=== PATIENT | male | born 1960 | race Caucasian/White ===

== ENCOUNTER → 2019-05-16 15:09 | Outpatient (CLI) | payer OTHER, SELFPAY ==
--- NOTE | ~2019-05-16 | XR_ITS ---
EXAMINATION: XR shoulder RT min 2V DATE: 05/16/2019 15:24 INDICATION: Right shoulder pain. TECHNIQUE: 4 views of right shoulder were obtained. COMPARISON: None. FINDINGS: Bone alignment is normal. No fracture. There is mild osteoarthritis of glenohumeral joint a nd moderate osteoarthritis of acromioclavicular joint. IMPRESSION: 1. Polyarticular osteoarthritis. Reviewed, dictated and finalized at location A. ERY CHIEF
== END ==
PROVIDERS: Visit Provider Family Medicine
DX: M19.011 Primary osteoarthritis, right shoulder (principal)
CPT/HCPCS: 73030

== ENCOUNTER 2019-12-30 01:46 | Outpatient (CLI) | payer OTHER, SELFPAY ==
[2019-12-30 18:23] LABS: SARS-CoV-2 RNA PCR Negative
== END 2019-12-30 01:47 | disposition home or self-care (01) ==
LOC: ANHCOVIDDT 01:46
PROVIDERS: PCP Family Medicine; Visit Provider Internal Medicine Gastroenterology
DX: Z01.812 Encounter for preprocedural laboratory examination (principal); Z20.828 Contact with and (suspected) exposure to other viral communicable diseases
CPT/HCPCS: 87635; C9803; U0003

== ENCOUNTER 2020-01-01 01:21 | Day surgery (SDC) | payer OTHER, SELFPAY ==
[2019-12-25 11:16] VITALS: BMI 26.2
[2020-01-01 07:19] VITALS: BP 114/82; PULSE 88; RESP 16; TEMP 36.2; O2SAT 98; BMI 25.7
[2020-01-01] MEDS: LACTATED RINGERS 1,000 ML 150 ML IV CONT (07:33)
--- NOTE | 2020-01-01 07:56 | WPDGICN ---
Assessment and Plan Assessment and plan (1) Encounter for screening colonoscopy: Code(s): Z12.11 - Encounter for screening for malignant neoplasm of colon Status: Acute Assessment and Plan: Patient appears to be at average risk for colon cancer. Last colonoscopy was 10 years ago in 2009. Plan is for screening colonoscopy at this time. Further recommendations will be given after endoscopy. GI Consult Note Consult date/time: 01/01/20 07:56 HPI: Bryan Coleman is a 59 year old male Seen in evaluation at the request of Dr Dania Solorzano. patient presents for screening colonoscopy. his current weight appetite bowel movements are normal. He denies abdominal pain. He states his bowel habits are normal. There has been no bleeding. Family history is noncontributory. No family history of colon or rectal disease is evident. Review of Systems Review of Systems: All systems reviewed & are unremarkable except as noted in HPI and below PMFSH Past Medical History Medical History Hepatitis C antibody test negative (~11/18/16) Normal colonoscopy (~10/01/09) Family History Family History Mother Diabetes mellitus Hypertension Family history of cardiovascular disease Family history of elevated blood lipids Father Hypertension Family history of elevated blood lipids Family history of cardiovascular disease Cerebrovascular accident Sibling Hypertension Social History Social History Smoking status: Never smoker Alcohol intake: current Meds Home Medications and Allergies Home Medications Medication Instructions Recorded Confirmed Type famotidine 20 mg tablet 20 mg PO DAILY PRN 05/22/19 01/01/20 History lisinopril 10 mg tablet 10 mg PO DAILY #90 tablet 12/11/19 01/01/20 Rx pravastatin 10 mg tablet 10 mg PO DAILY #90 tablet 12/11/19 01/01/20 Rx Allergies Allergy/AdvReac Type Severity Reaction Status Date / Time No Known Allergies Allergy Unknown Verified 01/01/20 07:16 Vital Signs Vital Signs - 24 hr 01/01/20 07:19 Temperature 97.2 F L Pulse Rate 88 Respiratory Rate 16 Blood Pressure 114/82 Pulse Oximetry 98 Exam Narrative: Exam Narrative: Physical exam reveals patient to be alert. Vital signs stable. HEENT exam unremarkable. Lungs are clear to auscultation and percussion. Heart is without murmur or extra sounds. Abdominal exam bowel sounds are present soft nontender with no hepatosplenomegaly. Digital external rectal exam normal.
--- NOTE | 2020-01-01 08:15 | WPDANESEPPF ---
Anes - Initial Pre Proc Eval Procedure: Operation Date: 01/01/20 08:30 Proposed Procedures p Screening Colonoscopy - Italo Bucio MD Date/Time: 01/01/20 08:15 Surgeon: Italo Bucio MD Pre Op Diagnosis: neoplasm screening Patient Data Age: 59 Gender: M Height: 6 ft 1 in Weight: 88.6 kg Last Vital Signs Temp 97.2 F L 01/01/20 07:19 Pulse 88 01/01/20 07:19 Resp 16 01/01/20 07:19 BP 114/82 01/01/20 07:19 Pulse Ox 98 01/01/20 07:19 Allergies Allergy/AdvReac Type Severity Reaction Status Date / Time No Known Allergies Allergy Unknown Verified 01/01/20 07:16 Home Medications Medication Instructions Recorded Confirmed Type famotidine 20 mg tablet 20 mg PO DAILY PRN 05/22/19 01/01/20 History lisinopril 10 mg tablet 10 mg PO DAILY #90 tablet 12/11/19 01/01/20 Rx pravastatin 10 mg tablet 10 mg PO DAILY #90 tablet 12/11/19 01/01/20 Rx Patient hx anesthesia problems: none Family hx anesthesia problems: none PMFSH Past Medical History Medical History (Updated 01/01/20 @ 07:59 by Ras Jean MD) Essential (primary) hypertension Gastro-esophageal reflux disease without esophagitis Hepatitis C antibody test negative (~11/18/16) Mixed hyperlipidemia Normal colonoscopy (~10/01/09) Family History Family History Mother Diabetes mellitus Hypertension Family history of cardiovascular disease Family history of elevated blood lipids Father Hypertension Family history of elevated blood lipids Family history of cardiovascular disease Cerebrovascular accident Sibling Hypertension Social History Social History Smoking status: Never smoker Alcohol intake: current Anes - Eval Final PreProcedure Day of Procedure 01/01/20 08:15 Patient weight: normal Heart: regular rate and rhythm Lungs: clear to auscultation Airway: Mallampati scale class II Neurological: alert and oriented Last oral intake: >/= 8 hours ASA classification: II Emergent: no Anesthetic plan: proceed Anesthesia type and monitoring: general GIVS and standard monitoring Informed Consent: The patient's anesthetic plan and its attendant risks and benefits were discussed with the patient/family/POA. Questions were solicited and answers provided to the satisfaction of the patient/family/POA.
[2020-01-01 08:56] VITALS: BP 122/70; PULSE 75; RESP 16; O2SAT 99
[2020-01-01 09:06] VITALS: BP 121/70; PULSE 80; RESP 21; O2SAT 97
[2020-01-01 09:16] VITALS: BP 116/82; PULSE 70; RESP 20; O2SAT 100
== END 2020-01-01 09:24 | disposition home or self-care (01) ==
PROVIDERS: PCP Family Medicine; Visit Provider Internal Medicine Gastroenterology
PROC: 0DJD8ZZ Inspection of Lower Intestinal Tract, Via Natural or Artificial Opening Endoscopic (ICD-10-PCS; CPT 45378; principal; 2020-01-01 08:30)
DX: Z12.11 Encounter for screening for malignant neoplasm of colon (principal); K64.8 Other hemorrhoids
CPT/HCPCS: 45378; J2704; J7120

== ENCOUNTER → 2022-01-03 15:08 | Outpatient (CLI) | payer OTHER, SELFPAY ==
--- NOTE | ~2022-01-03 | XR_ITS ---
XR foot RT min 3V DATE: 01/03/2022 15:19 INDICATION: Right great toe pain. No injury. TECHNIQUE: 4 views COMPARISON: None FINDINGS: There is moderately prominent osteoarthritic change at the first metatarsophalangeal joint. No fracture or dislocation, periosteal reaction or bone destruction. IMPRESSION: Moderate osteoarthritic change at first metatarsophalangeal joint Reviewed, dictated and finalized at location B.
== END ==
PROVIDERS: PCP Family Medicine; Visit Provider Family Medicine
DX: M19.071 Primary osteoarthritis, right ankle and foot (principal)
CPT/HCPCS: 73630

== ENCOUNTER 2022-04-07 08:20 | Outpatient (CLI) | payer OTHER, SELFPAY ==
--- NOTE | 2022-04-07 08:34 | ECG_ITS ---
Measurements Intervals [place] Rate: 61 P: 64 IN: 195 QRS: 32 QRSD: 95 T: 55 QT: 382 QTc: 388 Interpretive Statements SINUS RHYTHM NO PREVIOUS ECG AVAILABLE FOR COMPARISON Electronically Signed On 04-07-2022 10:23:18 [employer] by Danette Rankin M.D.
== END 2022-04-07 08:21 | disposition home or self-care (01) ==
LOC: ANHCARD 08:21
PROVIDERS: PCP Family Medicine; Visit Provider Orthopaedic Surgery Hand Surgery
DX: M79.642 Pain in left hand (principal)
CPT/HCPCS: 93005

== ENCOUNTER 2022-05-15 10:13 | Outpatient (NON) | payer OTHER, SELFPAY ==
[2022-05-15 17:46] LABS: IFOB Positive Control Positive; Immunochemical Fecal Occult Bl Negative (N)
== END 2022-05-15 10:14 | disposition home or self-care (01) ==
LOC: ANHGOSHLAB 10:15
PROVIDERS: PCP Family Medicine; Visit Provider Family Medicine
DX: D64.9 Anemia, unspecified (principal)
CPT/HCPCS: 82274

== ENCOUNTER 2024-07-25 10:42 | Outpatient (CLI) | payer MEDICARE, OTHER, SELFPAY ==
--- NOTE | ~2024-07-25 | XR_ITS ---
Left Shoulder Technique: AP and scapular Y views were obtained. Clinical History: Pain Findings: No fracture or dislocation is seen. Osseous alignment is anatomic. The glenohumeral and acr omioclavicular joint spaces are preserved. Soft tissues are unremarkable. Impression: Unremarkable left shoulder radiographs. Reviewed, dictated and finalized at [facility]. Impression: Unremarkable left shoulder radiographs.
== END 2024-07-25 10:43 | disposition home or self-care (01) ==
LOC: GOSHIMG 10:42
PROVIDERS: PCP Family Medicine; Visit Provider Family Medicine
DX: M25.512 Pain in left shoulder (principal)
CPT/HCPCS: 73030

== ENCOUNTER 2024-07-30 15:25 | Emergency (ER) | payer MEDICARE, OTHER, SELFPAY ==
[2024-07-30 15:35] VITALS: BP 191/108; PULSE 96; RESP 16; TEMP 36.4; O2SAT 99
--- NOTE | 2024-07-30 15:55 | ED_ITS ---
HPI - General Adult General Chief complaint: Unspecified <Yamel Roly ANTONIA Mcpherson BC - Last Filed: 07/30/24 16:21> Stated complaint: ELEVATED BLOOD PRESSURE <Yamel Dunham ANTONIA Mcpherson BC - Last Filed: 07/30/24 16:21> Time Seen by Provider: 07/30/24 15:45 <ANTONIA Figueroa BC - Last Filed: 07/30/24 16:21> Source: patient and RN notes reviewed <Yamel Roly ANTONIA Mcpherson BC - Last Filed: 07/30/24 16:21> Mode of arrival: ambulatory <ANTONIA Figueroa BC - Last Filed: 07/30/24 16:21> Limitations: no limitations <Yamel Roly ANTONIA Mcpherson BC - Last Filed: 07/30/24 16:21> History of Present Illness HPI narrative: Patient presents today complaining of 5 day history of headache, fatigue, dizziness, fogginess in his head, left shoulder pain radiating to the arm. He currently rates his headache 8/10 and has tried Tylenol without relief. He is complaining of elevated blood pressures for the past 5 days as well into the 170 systolic. He saw his PCP last week for left shoulder pain and they noted his elevated blood pressure. At that time his lisinopril was increased from 10 mg daily to 20 mg daily. Through the weekend he was in contact with his PCP who increased him to 20 mg b.i.d.. He has been keeping track of his blood pressure through the weekend and they have not decreased. He was instructed to follow-up for further evaluation of his blood pressure today. He denies chest pain, shortness of breath, numbness or tingling, weakness, vision changes. Patient states he has gained 15 lb in the last 2 months due to starting on testosterone treatment. <Yamel LLatonya ANTONIA Mcpherson BC - Last Filed: 07/30/24 16:21> Related Data Home medications: Home Medications ?Medication ?Instructions ?Recorded ?Confirmed ?Last Taken ?Type famotidine 20 mg tablet 20 mg PO DAILY PRN REFLUX 05/22/19 07/25/24 Unknown History testosterone 1 % (50 mg/5 gram) 1 packet transdermal DAILY 07/25/24 07/25/24 Unknown History transdermal gel packet (AndroGel) <ANTONIA Figueroa BC - Last Filed: 07/30/24 16:21> Allergies/adverse reactions: Allergies Allergy/AdvReac Type Severity Reaction Status Date / Time No Known Allergies Allergy Unknown Verified 07/30/24 15:28 <ANTONIA Figueroa BC - Last Filed: 07/30/24 16:21> Review of Systems Review of Systems: CONSTITUTIONAL: Denies fever, chills, or sweats. Positive for fatigue EYES: Denies visual changes, redness, or discharge. ENT: Denies rhinorrhea, congestion, sore throat, or otalgia. CARDIOVASCULAR: Denies chest pain, palpitations, or edema. Positive for dizziness. RESPIRATORY: Denies cough or dyspnea. GASTROINTESTINAL: Denies abdominal pain, nausea, vomiting, or diarrhea. GENITOURINARY: Denies dysuria or hematuria. SKIN: Denies rash or itching. MUSCULOSKELETAL: Denies back pain, joint pain, or myalgia. Positive for Left shoulder pain NEUROLOGIC: Denies numbness, or weakness. Positive for headaches and ?fogginess ? PSYCHIATRIC: Denies anxiety or depression. All other systems reviewed are negative, except as documented in HPI. <Rios Gonzalez APRN - Last Filed: 07/30/24 16:18> [facility] Past Medical History Medical History: Medical History Hallux rigidus of right foot Normal colonoscopy (~10/01/09) Hepatitis C antibody test negative (~11/18/16) Essential (primary) hypertension Gastro-esophageal reflux disease without esophagitis Mixed hyperlipidemia <ANTONIA Figueroa BC - Last Filed: 07/30/24 16:21> Family History Family History: Family History Mother Diabetes mellitus Hypertension Family history of cardiovascular disease Family history of elevated blood lipids Father Hypertension Family history of elevated blood lipids Family history of cardiovascular disease Cerebrovascular accident Sibling Hypertension <ANTONIA Figueroa BC - Last Filed: 07/30/24 16:21> Social History Social History: Social History Smoking status: Never smoker Alcohol intake: current Drinks per week: 20 Alcohol use details: [id number]-jeuq-kydz-[id number] Substance use: never Substance use type: does not use Lack of Transportation: No Lack of Food: Never True Current Housing: I Have Housing Concerned About Future Housing: No Difficulty Paying Gas/Electric Bills: No Difficulty Paying for Meds: No Currently Unemployed: No Education: Master's Degree or Higher Difficulty w/ Childcare or Family Care: No Living arrangements: with family Additional living arrangements comments: Occupation/Education: retired Gender identity (if verbalized by the patient): Male Sexual Orientation (if Verbalized by the Patient): Straight or Heterosexual Agree to blood products: Yes <ANTONIA Figueroa BC - Last Filed: 07/30/24 16:21> Comments At the time of my signature, I reviewed and agree with the nursing past medical, surgical, social, and family history. There is no relevant family history pertinent to the patient complaint. <Rios Gonzalez APRN - Last Filed: 07/30/24 16:18> Exam Narrative: GENERAL: This is a well-nourished, well-developed patient, in no apparent distress. HEAD: normocephalic, atraumatic. EYES: Sclera clear/white. Vision is grossly intact. Pupils PERRLA EARS: Hearing grossly intact. NOSE: External nose normal with no obvious nasal discharge CARDIOVASCULAR: Regular rate and rhythm without murmurs, gallops, or rubs. RESPIRATORY: Clear to auscultation. Breath sounds equal bilaterally. No wheezes, rales, or rhonchi. SKIN: warm, Dry, intact with no suspicious lesions or rash, good texture and turgor. NEURO: awake, alert, and oriented to person, place and time. There were no obvious focal neurologic abnormalities. EXTREMITIES: No joint tenderness, effusion, or edema noted. Left shoulder nontender and pain free with movement. BACK: Nontender without deformity. No CVA tenderness. <ANTONIA Figueroa BC - Last Filed: 07/30/24 16:21> GENERAL: This is a well-nourished, well-developed patient, in no apparent distress. HEAD: normocephalic, atraumatic. EYES: Sclera clear/white. Vision is grossly intact. Pupils PERRLA EARS: Hearing grossly intact. NOSE: External nose normal with no obvious nasal discharge CARDIOVASCULAR: Regular rate and rhythm without murmurs, gallops, or rubs. RESPIRATORY: Clear to auscultation. Breath sounds equal bilaterally. No wheezes, rales, or rhonchi. GASTROINTESTINAL: Abdomen soft, non-tender, nondistended. Bowel sounds are active. No hepato-splenomegaly, or palpable masses. No guarding. SKIN: warm, Dry, intact with no suspicious lesions or rash, good texture and turgor. NEURO: awake, alert, and oriented to person, place and time. There were no obvious focal neurologic abnormalities. EXTREMITIES: No joint tenderness, effusion, or edema noted. BACK: Nontender without deformity. No CVA tenderness. <Rios Gonzalez APRN - Last Filed: 07/30/24 16:18> Course Course Level of Care: Express Care Visit <Rios Gonzalez APRN - Last Filed: 07/30/24 16:18> Vital Signs Vital signs: Vital Signs Temperature 97.6 F 07/30/24 15:35 Pulse Rate 96 07/30/24 15:35 Respiratory Rate 16 07/30/24 15:35 Blood Pressure 191/108 H 07/30/24 15:35 Pulse Oximetry 99 07/30/24 15:35 Temperature 97.6 F 07/30/24 15:35 Pulse Rate 96 07/30/24 15:35 Respiratory Rate 16 07/30/24 15:35 Blood Pressure 191/108 H 07/30/24 15:35 Pulse Oximetry 99 07/30/24 15:35 <ANTONIA Figueroa, - Last Filed: 07/30/24 16:21> Vital Signs Temperature 97.6 F 07/30/24 15:35 Pulse Rate 96 07/30/24 15:35 Respiratory Rate 16 07/30/24 15:35 Blood Pressure 191/108 H 07/30/24 15:35 Pulse Oximetry 99 07/30/24 15:35 Temperature 97.6 F 07/30/24 15:35 Pulse Rate 96 07/30/24 15:35 Respiratory Rate 16 07/30/24 15:35 Blood Pressure 191/108 H 07/30/24 15:35 Pulse Oximetry 99 07/30/24 15:35 Reviewed <Rios Gonzalez APRN - Last Filed: 07/30/24 16:18> Transfer Transfered to: [facility] <ANTONIA Figueroa, BC - Last Filed: 07/30/24 16:21> Transportation: Other (Private vehicle. Declines EMS) <ANTONIA Figueroa, BC - Last Filed: 07/30/24 16:21> Transfer rationale: Elevated blood pressure, headache, dizziness <ANTONIA Figueroa, BC - Last Filed: 07/30/24 16:21> Accepting physician: Maria C <ANTONIA Figueroa, BC - Last Filed: 07/30/24 16:21> Medical Decision Making MDM Narrative Medical decision making narrative: Due to patient's history, elevated blood pressure, he will be transferred to the ER for further evaluation of his symptoms. Patient declines EMS transfer. <ANTONIA Figueroa, BC - Last Filed: 07/30/24 16:21> Differential Diagnosis Differential Diagnosis: Hypertensive urgency, hypertensive emergency, hypertension <ANTONIA Figueroa, BC - Last Filed: 07/30/24 16:21> Vital Signs Vital Signs: Vital Signs Temperature 97.6 F 07/30/24 15:35 Pulse Rate 96 07/30/24 15:35 Respiratory Rate 16 07/30/24 15:35 Blood Pressure 191/108 H 07/30/24 15:35 Pulse Oximetry 99 07/30/24 15:35 Temperature 97.6 F 07/30/24 15:35 Pulse Rate 96 07/30/24 15:35 Respiratory Rate 16 07/30/24 15:35 Blood Pressure 191/108 H 07/30/24 15:35 Pulse Oximetry 99 07/30/24 15:35 <ANTONIA Figueroa, BC - Last Filed: 07/30/24 16:21> Vital Signs Temperature 97.6 F 07/30/24 15:35 Pulse Rate 96 07/30/24 15:35 Respiratory Rate 16 07/30/24 15:35 Blood Pressure 191/108 H 07/30/24 15:35 Pulse Oximetry 99 07/30/24 15:35 Temperature 97.6 F 07/30/24 15:35 Pulse Rate 96 07/30/24 15:35 Respiratory Rate 16 07/30/24 15:35 Blood Pressure 191/108 H 07/30/24 15:35 Pulse Oximetry 99 07/30/24 15:35 <Rios Gonzalez APRN - Last Filed: 07/30/24 16:18> Critical Care Time Critical Care Time Critical Care Time: No <ANTONIA Figueroa BC - Last Filed: 07/30/24 16:21> Discharge Plan Discharge Clinical Impression: Headache, Elevated blood pressure reading, Dizziness <ANTONIA Figueroa BC - Last Filed: 07/30/24 16:21> Patient Disposition: Acute Care Hospital <ANTONIA Figueroa BC - Last Filed: 07/30/24 16:21> Condition: Serious <ANTONIA Figueroa BC - Last Filed: 07/30/24 16:21> Patient Language: Mauritanian <ANTONIA Figueroa BC - Last Filed: 07/30/24 16:21> Prescriptions: No Action testosterone [AndroGel] 1 % (50 mg/5 gram) gel in packet 1 packet transdermal DAILY cyclobenzaprine 10 mg tablet 10 mg PO TID PRN (Reason: muscle spasm) Qty: 30 0RF famotidine 20 mg tablet 20 mg PO DAILY PRN (Reason: REFLUX) sildenafil 100 mg tablet See Rx Instructions .ROUTE .COMPLEX Qty: 5 5RF Dose Instruction: TAKE 1 TABLET BY MOUTH ONCE DAILY NEEDED FOR SEXUAL ACTIVITY. ADMINISTER 30 MINUTES TO 4 HOURS BEFORE ACTIVITY Rx Instructions: TAKE 1 TABLET BY MOUTH ONCE DAILY NEEDED FOR SEXUAL ACTIVITY. ADMINISTER 30 MINUTES TO 4 HOURS BEFORE ACTIVITY pravastatin 40 mg tablet 40 mg PO QHS Qty: 90 1RF meloxicam 15 mg tablet See Rx Instructions .ROUTE .COMPLEX Qty: 90 1RF Dose Instruction: Take 1 tablet by mouth once daily Rx Instructions: Take 1 tablet by mouth once daily lisinopril 10 mg tablet See Rx Instructions .ROUTE .COMPLEX Qty: 90 1RF Dose Instruction: Take 1 tablet by mouth once daily Rx Instructions: Take 1 tablet by mouth once daily lisinopril 40 mg tablet 20 mg PO BID Qty: 90 1RF <ANTONIA Figueroa BC - Last Filed: 07/30/24 16:21> Follow-up/Referrals: Dania Solorzano DO [Primary Care Provider] - <ANTONIA Figueroa BC - Last Filed: 07/30/24 16:21> Time of Disposition: 16:04 <ANTONIA Figueroa BC - Last Filed: 07/30/24 16:21> 16:04 <Rios Gonzalez APRN - Last Filed: 07/30/24 16:18>
== END 2024-07-30 16:11 | disposition short-term general hospital (02) ==
PROVIDERS: Emergency Provider Nurse Practitioner; PCP Family Medicine
DX: R51.9 Headache, unspecified (principal); I10 Essential (primary) hypertension; R42 Dizziness and giddiness; K21.9 Gastro-esophageal reflux disease without esophagitis; E78.2 Mixed hyperlipidemia
CPT/HCPCS: 99212; G0463

== ENCOUNTER 2024-07-30 16:24 | Emergency (ER) | payer MEDICARE, OTHER, SELFPAY ==
[2024-07-30] VITALS (17 sets, daily range): BP systolic 119–192; BP diastolic 77–108; PULSE 66–78; RESP 14–28; TEMP 36.6–36.7; O2SAT 98–100
--- NOTE | ~2024-07-30 | CT_ITS ---
CT brain wo con Ordering provider: Avel Gary MD History: 64 years Male with . gibson, hypertention . Comparison: None. Technique: CT of the head without contrast. Radiation reduction technique utilized.The dose-length pr oduct was 681 mGy-cm. FINDINGS: BRAIN PARENCHYMA AND CSF SPACES: No midline shift, mass effect or hemorrhage. The brain parenchyma a nd CSF spaces are otherwise normal. Empty sella turcica. VISUALIZED PARANASAL SINUSES: Well aerated. MASTOIDS: Well aerated. BONES: The bones appear intact. SOFT TISSUES: Visualized nasopharynx is normal. Superficial soft tissues are normal. IMPRESSION: No acute intracranial findings. Reviewed, dictated and finalized at location A.
--- NOTE | ~2024-07-30 | XR_ITS ---
XR chest 1V portable Ordering provider: Avel Gary MD History: 64 years Male with . elevated BP, dizzy . Comparison: April 22, 2014 FINDINGS: MEDIASTINUM: The cardiac silhouette is slightly enlarged. Congestive dallin. LUNGS: No infiltrates, effusions or pneumothorax. Slightly prominent markings in the lower lobes. OTHER: No free air under the diaphragm. Degenerative changes of the spine. IMPRESSION: No acute cardiopulmonary pathology. Reviewed, dictated and finalized at location A.
--- OUTSIDE RECORDS SUMMARY | 2024-07-30 17:10 | XMS_ITS | Clinical Summary ---
Author Organization [facility] [address] Address [address] [place] [id number] Care Team Providers Care Music Composer Name Role Phone Dania Solorzano DO Primary Care Provider [phone] Immunizations Immunization Administration Dates Next Due Influenza, Quadrivalent, Spl it, Preservative Free, Intramuscular 02/28/2022 Social History Tobacco Use Types Packs/Day Years Used Date Smoking Tobacco: Never Assessed Personal Safety Answer Date Recorded Getting School Help Needed Not on file 07/20 Sex and Gender Information Value Date Recorded Sex Assigned at Not on file 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 Gender Identity Not on file Sexual Orientation Not on file Plan of Treatment Health Maintenance Due Date Last Done Comments Colon Cancer Screening-Colonoscopy 1960 Depression Screening 1960 Fall Risk Assessment 1960 Hepatitis C Screening 1960 Prostate Cancer Screening-PSA 1959 Hepatitis B Screening 1977 Pneumococcal vaccine 65+ (1 of 1 - PCV) 2009 Zoster Vaccine (1 of 2) 2009 Covid-19 Vaccine (4 - 2023- season) 2024 04/19/2021, 07/11/2020, 06/20/2020 Influenza Vaccine (#1) 2024 2, 03/22/2021, 02/15/2018 Abdominal Aortic Aneurysm (A AA) Screen 2024 Well Visit 65+ 2024 DTaP/Tdap/Td Vaccine (2 - Td or Tdap) 04/12/203011/2019 Insurance [employer] OPEN ACCESS Care Teams Music Composer Relationship Specialty Start Date End Date Dania Solorzano DO PCP - General Family Medicine 02/28/22
--- OUTSIDE RECORDS SUMMARY | 2024-07-30 17:10 | XMS_ITS | Referral Summary ---
Author Organization [facility] [address] Address [facility] [place] [facility] [place] [place] [address] Care Team Providers Care Cotton Agent Name Role Phone Dania Solorzano DO Primary Care Provider [phone] Immunizations Immunization Administration Dates Next Due Influenza, Quadrivalent, Spl it, Preservative Free, Intramuscular 02/28/2022 Social History Tobacco Use Types Packs/Day Years Used Date Smoking Tobacco: Never Assessed Personal Safety Answer Date Recorded Getting School Help Needed Not on file 07/20 Sex and Gender Information Value Date Recorded Sex Assigned at Not on file 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
--- OUTSIDE RECORDS SUMMARY | 2024-07-30 17:10 | XMS_ITS | Clinical Summary ---
Author Organization [facility] Address [address] [place] [id number] Care Team Providers Care Electrophysiology Nurse Practitioner Name Role Phone Arlen Chang MD Primary Care Provider [phone] Medications lisinopril 10 MG tablet 03/20/2021 Active meloxicam 15 MG tablet 04/08/2021 Active pravastatin 20 MG tablet Take 20 mg by mouth nightly at bedtime. 05/17/2021 Active tadalafil 10 MG tablet 12/23/2020 Active Active Problems No known active problems Immunizations Name Administration Dates Next Due Influenza (Generic) 03/22/2021 Influenza Adult (Generic) 02/15/2018 Tdap (Generic) 04/12/2020 Family History Medical History Relation Comments Hypertension Father Stroke Father Diabetes Mother Hypertension Mother Relation Status Comments Father Mother Social History Tobacco Use Types Packs/Day Years Used Date Smoking Tobacco: Never Smokeless Tobacco: Never Alcohol Use Standard Drinks/Week Comments Yes 0 (1 standard drink = 0.6 oz pur e alcohol) Sex and Gender Information Value Date Recorded Sex Assigned at Not on file 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 Gender Identity Not on file Sexual Orientation Not on file Last Filed Vital Signs Vital Sign Reading Time Taken Comments Blood Pressure 112/70 05/20/2021 6:58 AM SIGNAL WORKER Pulse 77 05/20/2021 6:58 AM SIGNAL WORKER Temperature 36.2 C (97.1 F) 05/20/2021 6:58 AM SIGNAL WORKER Respiratory Rate - - Oxygen Saturation 98% 05/20/2021 6:58 AM SIGNAL WORKER Inhaled Oxygen Concentration - - Weight 90.7 kg (200 lb) 05/20/2021 6:58 AM SIGNAL WORKER Height 185.4 cm (6' 1 ) 05/20/2021 6:58 AM SIGNAL WORKER Body Mass Index 26.39 05/20/2021 6:58 AM SIGNAL WORKER Plan of Treatment Health Maintenance Due Date Last Done Comments Colorectal Cancer Screening Colonoscopy (10 Years) 1959 Hepatitis C 1977 Zoster Vaccines (1 of 2) 2009 COVID-19 Vaccine (4 - 2023-2 5 season) 2024 04/19/2021, 07/11/2020, 06/20/2020 Influenza Adult (#1) 2024 03/22/2021, 02/15/2018 Pneumococcal Vaccine: 65+ Years (1 of 1 - PCV) 2024 DTaP, Tdap and Td Vaccines ( 2 - Td or Tdap) 04/12/2030 04/12/2020 RSV Immunization or 60+ Years (1 - 1-dose 75+ series) 2034 Meningococcal B Vaccine Aged Out No l onger eligible based on patient's age to complete this topic Meningococcal Vaccine Aged Out No cedric paco eligible based on patient's age to complete this topic Pneumococcal Vaccine: Pediatrics (0 to 5 Years) and At-Risk Patients (6 to 64 Years) Aged Out No longer eligible b ased on patient's age to complete this topic RSV Immunizations Under 20 Months Aged Out No longer eligible b ased on patient's age to complete this topic Insurance * Guarantor: Bryan Coleman Account Type Relation to Patient Date of Phone Billing Address Personal/Family Self [address] [place] [address] [place] [address] [employer] OPEN ACCESS [facility] Care Teams Electrophysiology Nurse Practitioner Relationship Specialty Start Date End Date Arlen Chang MD [address] [place] [address] PCP - General FAMILY PRACTICE 05/19/21
--- OUTSIDE RECORDS SUMMARY | 2024-07-30 17:10 | XMS_ITS | Data Portability ---
Author Organization [place] - [employer], Main Office Address [address] [place] [address] Care Team Providers Care Nurse Epidemiologist Name Role Phone DANELLE NICHOLSON Primary Care Provider LISADANELLE Romero Referring Provider [phone] Assessment No assessment recorded. Plan of Treatment Reminders Order Date Submit Date Provider Last Modified By Organization Details Last Modified Time Details Appointments None record ed. Lab None record ed. Referral None record ed. Procedures None record ed. Surgeries None record ed. Imaging None record ed. Medication Orders None record ed. Patient TargetsNo targets recorded. Patient InstructionsNo instructions recorded. Reason for Referral None Reported. Results Created Date Observation Date Name Description Value Unit Range Abnormal Flag Note LastModifiedBy Organization Detail LastModifiedTime 02/25/20 22 XR, hand No observ ation record ed. MIGRATION. [facility] [address] [facility] [address], [address], 07/06/2022 01:27:10 04/07/20 22 04/07/2022 rhyth m strip , EKG* No observ ation record ed. MIGRATION. [facility] (Cardiology & Em[facility]) [address] [facility] [address], [place], [address], 07/06/2022 01:27:10 05/23/19 23 XR, hand, 3 or more view No observ ation record ed. MIGRATION. [facility] [address] [facility] [address], [address], 07/06/2022 01:27:10 Result Notes None recorded. Problems Name Problem SNOMED Code Status Onset Date Resolution Date Notes Provider Name and Address Organization Details Recorded Time Pain of left hand 1860837624912 03 Active 2021 Not Available [facility] 3 01:25:49 Pain in right hand 6022324851859 09 Active 2021 Not Available [facility] 3 01:25:49 Osteoarthr itis 653052753 Active 2021 Not Available [facility] 3 01:25:49 Osteoarthr itis of wrist 821295598 Active 2022 Adelfo Corley MD [address] [facility], [facility] [address], [place], [address] , [facility] [employer] 3 09:41:45 Problem Notes None recorded. Procedures Surgical History None recorded. Imaging Results Imaging Date Name Status LastModified by Organiz ation Details LastModified Time 05/23/2022 XR, hand, 3 or more view completed [id number] [facility] [address] [facility] [address], [place], [address], 07/06/2022 01:27:10 04/07/2022 rhythm strip, EKG* completed [id number] [facility] (Cardiology & Em[facility]) [address] [facility] [address], [place], [address], 07/06/2022 01:27:10 02/24/2022 XR, hand completed [id number] [facility] [address] [facility] [address], [place], [address], 07/06/2022 01:27:10 Procedure Notes None recorded. Medical Equipment None Reported. Medications Name Sig Start Date Stop Date Status Note LastModified by Organization Details LastModified Time pravastatin 40 mg tablet TAKE 1 TABLET BY MOUTH ONCE DAILY AT BEDTIME active Not Available Not Available No t Available meloxicam 15 mg tablet TAKE 1 TABLET BY MOUTH ONCE DAILY active Not Available Not Available No t Available sildenafil 100 mg tablet TAKE 1 TABLET BY MOUTH ONCE DAILY NEEDED FOR SEXUAL ACTIVITY. ADMINISTER 30 MINUTES TO 4 HOURS BEFORE ACTIVITY active Not Available Not Available No t Available pravastatin 10 mg tablet TAKE 1 TABLET BY MOUTH ONCE DAILY active Not Available Not Available No t Available hydrocodone 7.5 mg-acetamino phen 325 mg tablet active Not Available Not Available Not Available lisinopril 10 mg tablet TAKE 1 TABLET BY MOUTH ONCE DAILY active Not Available Not Available No t Available pravastatin 20 mg tablet TAKE 1 TABLET BY MOUTH AT BEDTIME active Not Available Not Available No t Available naproxen 500 mg tablet TAKE 1 TABLET BY MOUTH TWICE DAILY NEEDED FOR PAIN active Not Available Not Available No t Available Vitals Date Recorded Body mass index (BMI) Body height Body weight Provider Name and Address Organization Details Last Updated DateTime 02/24/2022 27.1 kg/m2 182.88 cm 42452.47 g Not Available [facility] 07/06/2022 01:25:39 Date Recorded Body mass index (BMI) Body height Pain severity - 0-10 verbal numeric rating [Score] - Reported Body weight Provider Name and Address Organization Details Last Updated DateTime 03/07/2022 26.9 kg/m2 182.88 cm 9 10652.29 g Not Available [facility] 07/06/2022 01:25:39 Date Recorded Body mass index (BMI) Body height Body weight Provider Name and Address Organization Details Last Updated DateTime 05/23/2022 26.4 kg/m2 185.42 cm 14771.47 g Not Available [facility] 07/06/2022 01:25:39 Date Recorded Body height Provider Name an d Address Organization Details Last Updated DateTime 04/25/2022 182.88 cm Not Available [facility] 01:25:39 Date Recorded Body height Provider Name an d Address Organization Details Last Updated DateTime 08/22/2022 185.42 cm PARVEZ Parsons [place] [facility] 08/22/2022 09:00:59 Social History None recorded. Functional Status None recorded. Mental Status None recorded. Family History Nothing Reported. Medical History Condition Response HYPERTENSION Y Past Encounters Encounter ID Performer Location Encounter Start Date Encounter Closed Date Diagnosis/Indication Diagnosis SNOMED-CT Code Diagnosis ICD10 Code Diagnosis Note [id number] [facility] [address] [place], [place] [address] 02/24/2022 00:00:00 02/24/2022 16:09:48 [id number] [facility] [address] [place] [address] 03/07/2022 00:00:00 03/07/2022 16:37:57 [id number] [facility] [address] [place], [place] [address] 04/25/2022 00:00:00 04/25/2022 16:45:26 [id number] [facility] [address] [place], [place] [id number] 05/23/2022 00:00:00 05/23/2022 17:20:38 [id number] Adelfo Corley MD [facility] [address] [place] [id number] 08/22/2022 08:58:06 08/22/2022 09:26:14 Pain of left hand 9835632781 50108 M79.642 Osteoarthr itis of wrist 376419644 M19.039 patient will continue with his stretches and strengthen ing exercises. Do occasional anti-infla mmatory if he still having a little soreness. Usually takes 3 months to get about 25% of the way there 6 months 50% and a year to get full healing after these tendon interposit ion arthroplas ties. We will see him back in 3 months for follow-up AP lateral oblique views of the hand. He still has a little bit of pain around scaphotrap ezoid we can do a little cortisone injection if the capsule distillation operator helper and thickened. If he would have complete subsidence which I have seen 2 or 3 times out of several 1000 of these over the years then you can always do a suspension with the tight rope if need be. Typically, however, even when there was just a small 2 or 3 mm space they tend to do just fine over time with regards to pain and range of motion and function. Health Concerns Section Related Observation LastModified by Organization Detai ls LastModified Time None Recorded Concern Status LastModified by Organization Details LastModified Time None Recorded Advance Directives Directive None Recorded Payers Encounter Date Sequence Insurance Name Policy Number Policy Sousa Covered Member ID Sousa Member ID Guarantor Name 08/22/2022 1 [employer] - OPEN ACCESS Bryan Coleman [id number] OI Bryan Jared Notes Date Note Type Note Provider Name and Address Organization Details Recorded Time 08/22/2022 text/html Returns today fo r follow-up he had a yuli trapezoid excision trapezial excision 04/12/2022 he has just a little bit of soreness with radial ulnar deviation and flexion extension most likely still around the scaphotrapezoid area no longer having the severe pain around the CMC joint Adelfo Corley MD [address] [place] [address] [address], [place], [address], [facility] [place] 08/22/2022 09:43:14
--- NOTE | 2024-07-30 17:59 | ECG_ITS ---
Test Date: 2024-07-30 18:22:48 Measurements Intervals Freeman Rate: 62 P: 25 VT: 184 QRS: 7 QRSD: 87 T: 55 QT: 375 QTc: 383 Interpretive Statements SINUS RHYTHM No previous ECG available for comparison Electronically Signed On 07-31-2024 10:47:27 CDT by Devendra Bassett M.D.
[2024-07-30 18:27] LABS: Basophils Percent Auto 0.5 % (0.2-1.2); Eosinophils Absolute Auto 0.1 K/mm3 (0-0.3); Eosinophils Percent Auto 0.9 % (0-4.4); Hematocrit 49.4 % (42.0-52.0); Immature Granulocyte Absolute 0.03 K/mm3 (0.00-0.031); Immature Granulocyte Percent A 0.3 % (0-0.5); Lymphocytes Percent Auto 11.5 % (18.3-44.2); Mean Corpuscular HGB Conc 34.4 g/dl (32-36); Mean Corpuscular Hemoglobin 32.6 pg (26-34); Mean Corpuscular Volume 94.8 fl (80-100); Mean Platelet Volume 10.4 fl (7.4-10.4); Monocytes Absolute Auto 0.5 K/mm3 (0.1-0.6); Monocytes Percent Auto 6.1 % (2.6-8.5); Neutrophils Percent Auto 80.7 % (45.5-73.1); Platelet Count Result 259 k/mm3 (150-375); Red Blood Count 5.21 M/mm3 (4.6-6.20); Red Cell Distribution Width 12.7 % (11.5-14.5); White Blood Count 8.7 K/mm3 (4.5-10.0)
--- NOTE | 2024-07-30 18:27 | ED_ITS ---
HPI - Headache General Chief Complaint: Headache Stated Complaint: Headache, elevated BP, dizzy Time Seen by Provider: 07/30/24 17:59 History of Present Illness HPI Narrative: 64-year-old male presents to the emergency department for evaluation of elevated blood pressure readings. Patient went to his primary care provider's office last week with complaints of left-sided shoulder discomfort after potential injury in May. She knows that his blood pressure was severely elevated and encouraged him to take additional lisinopril. Over the weekend he has had dizziness interval change from 10 mg daily to now 20 mg b.i.d.. Patient tells me that he had outpatient laboratory studies that showed a new kidney injury at creatinine 1.42 but this was prior to the titration of his lisinopril. Patient has been stable on his home lisinopril dose for many years without any changes. The only recent change to his regimen was that he HD his testosterone cream in May and used for several weeks. Stop using this last week at the discretion of his PCP. Patient states he gets a throbbing headache and feels brain fog whenever his blood pressure reaches above 180 and he has been keeping a blood pressure diarrhea thumb. Denies any symptoms such as chest pain, chest pressure, back pain, nausea, vomiting, vision changes, weakness, asymmetry in the face, slurred speech, difficulty walking, any other neurological complaints. He was otherwise in his normal state of health. Related Data Home Medications ?Medication ?Instructions ?Recorded ?Confirmed ?Last Taken ?Type famotidine 20 mg tablet 20 mg PO DAILY PRN REFLUX 05/22/19 07/25/24 Unknown History testosterone 1 % (50 mg/5 gram) 1 packet transdermal DAILY 07/25/24 07/25/24 Unknown History transdermal gel packet (AndroGel) Allergies Allergy/AdvReac Type Severity Reaction Status Date / Time No Known Allergies Allergy Unknown Verified 07/30/24 18:25 Review of Systems 2 Review of Systems: As reviewed above in HPI [facility] Past Medical History Medical History Hallux rigidus of right foot Normal colonoscopy (~10/01/09) Hepatitis C antibody test negative (~11/18/16) Essential (primary) hypertension Gastro-esophageal reflux disease without esophagitis Mixed hyperlipidemia Family History Family History Mother Diabetes mellitus Hypertension Family history of cardiovascular disease Family history of elevated blood lipids Father Hypertension Family history of elevated blood lipids Family history of cardiovascular disease Cerebrovascular accident Sibling Hypertension Social History Social History Smoking status: Never smoker Alcohol intake: current Drinks per week: 20 Alcohol use details: Hvcev-nbti-irsv-spirits Substance use: never Substance use type: does not use Lack of Transportation: No Lack of Food: Never True Current Housing: I Have Housing Concerned About Future Housing: No Difficulty Paying Gas/Electric Bills: No Difficulty Paying for Meds: No Currently Unemployed: No Education: Master's Degree or Higher Difficulty w/ Childcare or Family Care: No Living arrangements: with family Additional living arrangements comments: Occupation/Education: retired Gender identity (if verbalized by the patient): Male Sexual Orientation (if Verbalized by the Patient): Straight or Heterosexual Agree to blood products: Yes Exam 2 Narrative: GENERAL: [Well-appearing, well-nourished, and in no acute distress.] HEAD: [Normocephalic, atraumatic.] EYES: [PERRLA and EOMI.] ENT: Nares clear, no rhinorrhea or epistaxis. Mucous membranes moist. NECK: Supple. CHEST: [Clear to auscultation. No respiratory distress.] HEART: [Regular rate and rhythm]. No murmur heard. [Normal peripheral pulses.] ABDOMEN: [Soft, nondistended], [nontender], [No rigidity or guarding] EXTREMITIES: Normal range of motion. [No edema.] SKIN: Warm, dry, no rash. NEURO: [No focal deficits]. Alert and oriented [x3.] PSYCH: [Normal mood and affect.] Course Vital Signs Vital signs: Vital Signs Temperature 36.7 C 07/30/24 16:50 Pulse Rate 75 07/30/24 16:50 Respiratory Rate 16 07/30/24 16:50 Blood Pressure 192/94 H 07/30/24 16:50 Pulse Oximetry 100 07/30/24 16:50 Oxygen Delivery Room Air 07/30/24 16:50 Temperature 36.6 C 07/30/24 19:17 Pulse Rate 78 07/30/24 19:17 Respiratory Rate 24 H 07/30/24 19:17 Blood Pressure 171/98 H 07/30/24 19:13 Pulse Oximetry 100 07/30/24 19:17 Oxygen Delivery Room Air 07/30/24 16:50 MDM - Headache MDM Narrative Medical decision making narrative: 64-year-old male with history of hypertension taking lisinopril. He has been having elevated blood pressure readings at home and in his primary care provider's office. He had regular laboratory studies drawn last week that showed an acute kidney injury compared to his baseline normal kidney function. This was prior to titration of his lisinopril therapy. He would from 10 mg lisinopril daily to 20 mg lisinopril b.i.d. over last several days at the direction of his PCP for controlling his blood pressure. Presently in triage she is hypertensive with a blood pressure 192/94. No tachycardia, fever or hypoxia. Unremarkable clinical examination without any neurological deficits. NIH is 0. Normal strong 2+ symmetric pulses. Full range of motion of the extremities. No concerning features such as rales or signs of fluid overload. Patient was encouraged to go to the ER if he develops any worsening hypertension despite his therapies. He is complaining of a throbbing headache at this time but no other complaints. Suspicion for hypertensive emergency is low given his clinical examination findings but we will evaluate with broad workup including CBC, CMP, troponin, EKG, chest x-ray, CT of the head given his headache with hypertension. Low suspicion intracranial pathology such as stroke or subarachnoid hemorrhage. Low suspicion aortic process. D-dimer ordered as screening. Workup shows no leukocytosis or anemia. Normal platelet count. Negative D- dimer. Creatinine 1.31 which is better than it was last week which is reassuring. Normal electrolytes. Normal glucose, normal LFTs. Negative troponin. Chest x-ray shows no acute cardiopulmonary process. No pneumothorax or effusions. No consolidations. Head CT without any acute intracranial findings. EKG with sinus rhythm, no signs of ischemia or heart strain. No LVH. Patient was re-evaluated without any interventions with improvement in blood pressure 171/98. He remains without complaints at this time aside from mild throbbing headache. He has no signs of end-organ damage from hypertension. He was given Toradol, started on amlodipine and given Tylenol as well. He can be safely discharged home at this time and will contact his PCP for close follow-up tomorrow. Was started on 5 mg daily amlodipine in addition to his current lisinopril doses. Patient safely discharge. Medical Records Attestation: I reviewed the patient's medical records. Lab Data Attestation: I reviewed the patient's lab results. 07/30/24 18:21 07/30/24 18:21 Labs: Lab Results 07/30/24 Range/Units 18:21 WBC 8.7 (4.5-10.0) K/mm3 RBC 5.21 (4.6-6.20) M/mm3 Hgb 17.0 (14.0-18.0) g/dL Hct 49.4 (42.0-52.0) % MCV 94.8 (80-100) fl MCH 32.6 (26-34) pg MCHC 34.4 (32-36) g/dl RDW 12.7 (11.5-14.5) % Plt Count 259 (150-375) k/mm3 MPV 10.4 (7.4-10.4) fl Immature Gran % (Auto) 0.3 (0-0.5) % Neut % (Auto) 80.7 H (45.5-73.1) % Lymph % (Auto) 11.5 L (18.3-44.2) % [place] % (Auto) 6.1 (2.6-8.5) % Eos % (Auto) 0.9 (0-4.4) % Baso % (Auto) 0.5 (0.2-1.2) % Lymph # (Auto) 1.00 (0.9-3.2) K/mm3 [place] # (Auto) 0.5 (0.1-0.6) K/mm3 Eos # (Auto) 0.1 (0-0.3) K/mm3 Baso # (Auto) 0.0 (0.0-0.1) K/mm3 Abs Immat Gran (auto) 0.03 (0.00-0.031) K/mm3 Absolute Neuts (auto) 7.0 H (1.3-6.7) K/mm3 Absolute Nucleated RBC 0.000 (0.0-0.012) K/mm3 Nucleated RBC % 0.0 (0.0-0.2) % D-Dimer 0.42 (<0.48) ug/mL Sodium 138 (137-145) mmol/L Potassium 4.6 (3.4-5.0) mmol/L Chloride 100 (98-107) mmol/L Carbon Dioxide 27 (22-30) mmol/L Anion Gap 11 (4-12) mmol/L BUN 23 H (9-20) mg/dL Creatinine 1.31 H (0.7-1.3) mg/dL Estim Creat Clear Calc 57 ml/min Estimated GFR 55 L (59 - ) Glucose 93 (65-110) mg/dL Calcium 10.3 H (8.4-10.2) mg/dL Magnesium 2.0 (1.6-2.3) mg/dL Total Bilirubin 0.7 (0.2-1.3) mg/dL AST 35 (17-59) U/L ALT 35 (6-50) U/L Alkaline Phosphatase 56 (38-126) U/L Troponin I < 0.012 (0.000-0.034) ng/mL Total Protein 9.0 H (6.3-8.2) g/dL Albumin 5.5 H (3.5-5.1) g/dL Imaging Data Attestation: I personally reviewed and interpreted this imaging study as follows: My impression: Impressions Chest X-Ray 07/30/24 18:22 IMPRESSION: No acute cardiopulmonary pathology. Head CT 07/30/24 19:01 IMPRESSION: No acute intracranial findings. Discharge Plan Discharge Clinical Impression: Asymptomatic hypertensive urgency, Headache Patient Disposition: Home, Self-Care Condition: Stable Instructions: Antibiotic Form, Hypertension (ED) Additional Instructions: Your laboratory studies and workup here very reassuring. No signs of any hypertensive emergency. Will start you on a 2nd agent for controlling your blood pressure called amlodipine. Take this once daily in addition to your current lisinopril doses. Call your regular doctor tomorrow for close follow-up and titration of medications. Return to the ER if he exhibits any new or worsening concerns at any time. Patient Language: Latvian Prescriptions: New amlodipine [Norvasc] 5 mg tablet 5 mg PO DAILY Qty: 30 0RF No Action testosterone [AndroGel] 1 % (50 mg/5 gram) gel in packet 1 packet transdermal DAILY cyclobenzaprine 10 mg tablet 10 mg PO TID PRN (Reason: muscle spasm) Qty: 30 0RF famotidine 20 mg tablet 20 mg PO DAILY PRN (Reason: REFLUX) sildenafil 100 mg tablet See Rx Instructions .ROUTE .COMPLEX Qty: 5 5RF Dose Instruction: TAKE 1 TABLET BY MOUTH ONCE DAILY NEEDED FOR SEXUAL ACTIVITY. ADMINISTER 30 MINUTES TO 4 HOURS BEFORE ACTIVITY Rx Instructions: TAKE 1 TABLET BY MOUTH ONCE DAILY NEEDED FOR SEXUAL ACTIVITY. ADMINISTER 30 MINUTES TO 4 HOURS BEFORE ACTIVITY pravastatin 40 mg tablet 40 mg PO QHS Qty: 90 1RF meloxicam 15 mg tablet See Rx Instructions .ROUTE .COMPLEX Qty: 90 1RF Dose Instruction: Take 1 tablet by mouth once daily Rx Instructions: Take 1 tablet by mouth once daily lisinopril 10 mg tablet See Rx Instructions .ROUTE .COMPLEX Qty: 90 1RF Dose Instruction: Take 1 tablet by mouth once daily Rx Instructions: Take 1 tablet by mouth once daily lisinopril 40 mg tablet 20 mg PO BID Qty: 90 1RF Follow-up/Referrals: Dania Solorzano DO [Primary Care Provider] - 2 Days Time of Disposition: 19:25
--- OUTSIDE RECORDS SUMMARY | 2024-07-30 18:27 | XMS_ITS | Clinical Summary ---
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39 05/20/2021 6:58 AM CLIENT PROJECT COORDINATOR Plan of Treatment Health Maintenance Due Date [...] patient's age to complete this [place] [address] [facility] Care Teams Acetone Recovery Worker Relationship Specialty Start Date End Date Arlen Chang MD [address] [place] [address] PCP - General FAMILY PRACTICE 05/19/21
--- OUTSIDE RECORDS SUMMARY | 2024-07-30 18:27 | XMS_ITS | Referral Summary ---
Author Organization [facility] [address] [facility] [place] [address] Care Team Providers Care Senior Maintenance Technician Name Role Phone Dania Solorzano DO Primary Care Provider [phone] Immunizations Immunization Administration Dates Next Due Influenza, Quadrivalent, Spl it, Preservative Free, Intramuscular 02/28/2022 Social History Tobacco Use Types Packs/Day Years Used Date Smoking Tobacco: Never Assessed Personal Safety Answer Date Recorded Getting School Help Needed Not on file 07/20 Sex and Gender Information Value Date Recorded Sex Assigned at Not on file Legal Sex Male 9:20 PM [employer] Gender Identity Not on file Sexual Orientation Not on file Plan of Treatment Not on file [place] [address] Care Teams Senior Maintenance Technician Relationship Specialty Start Date End Date Dania Solorzano DO PCP - General Family Medicine 02/28/22
--- OUTSIDE RECORDS SUMMARY | 2024-07-30 18:27 | XMS_ITS | Clinical Summary ---
Author Organization [facility] [address] [place] Address [address] [place] [address] Care Team Providers Care Clothes Presser Name Role Phone Dania Solorzano DO Primary Care Provider [phone] Immunizations Immunization Administration Dates Next Due Influenza, Quadrivalent, Spl it, Preservative Free, Intramuscular 02/28/2022 Social History Tobacco Use Types Packs/Day Years Used Date Smoking Tobacco: Never Assessed Personal Safety Answer Date Recorded Getting School Help Needed Not on file 07/20 Sex and Gender Information Value Date Recorded Sex Assigned at Not on file 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
[2024-07-30 18:38] LABS: Alanine Aminotransferase 35 U/L (6-50); Albumin Level 5.5 g/dL (3.5-5.1); Alkaline Phosphatase 56 U/L (38-126); Anion Gap 11 mmol/L (4-12); Aspartate Amino Transferase 35 U/L (17-59); Bilirubin,Total 0.7 mg/dL (0.2-1.3); Blood Urea Nitrogen 23 mg/dL (9-20); Calcium 10.3 mg/dL (8.4-10.2); Carbon Dioxide 27 mmol/L (22-30); Chloride 100 mmol/L (98-107); Estimated CRCL calculation 57 ml/min; Estimated Glomerular Filt Rate 55; Glucose 93 mg/dL (65-110); Potassium 4.6 mmol/L (3.4-5.0); Sodium 138 mmol/L (137-145)
[2024-07-30 18:49] LABS: Troponin I < 0.012 ng/mL (0.000-0.034)
[2024-07-30 18:57] LABS: D Dimer 0.42 ug/mL (<0.48)
[2024-07-30] MEDS: amLODIPine BESYLATE 5 MG TABLET PO (19:25)
[2024-07-30] MEDS: ACETAMINOPHEN 500 MG TABLET 1000 MG PO (19:25)
[2024-07-30] MEDS: KETOROLAC 15 MG/ML VIAL (*BKC) IV PUSH (19:26)
== END 2024-07-30 19:47 | disposition home or self-care (01) ==
PROVIDERS: Emergency Provider Student in an Organized Health Care Education/Training Program; PCP Family Medicine
DX: I16.0 Hypertensive urgency (principal); R51.9 Headache, unspecified; Z79.899 Other long term (current) drug therapy
CPT/HCPCS: 36415; 70450; 71045; 80053; 83735; 84484; 85025; 85380; 93005; 96374; 99284; A9270; J1885

== ENCOUNTER 2024-08-15 14:30 | Outpatient (CLI) | payer MEDICARE, OTHER, SELFPAY ==
--- NOTE | ~2024-08-15 | MR_ITS ---
MRI of the left shoulder Technique: Axial proton-density fat-sat images, coronal proton density fat-sat and T2 fat-sat images, and sagittal T1-weighted and T2 fat-sat images were acquired. Clinical History: Pain Findings: There is moderate AC joint degenerative change, with mild bony productive change and subcho ndral cystic change in the joint. Coracoclavicular, coracoacromial, and coracohumeral ligaments appea r intact. There is moderate supraspinatus and infraspinatus tendinosis, without partial or full-thickness tear. Subscapularis tendon is intact with mild tendinosis. Tendon of the long head of the biceps is intact . Possible focal degenerative tear at the anterior labrum at the equator. Inferior glenohumeral ligament is intact. No significant degenerative change or effusion of the gleno humeral joint. There is mild chondral thinning of the glenohumeral joint. No subacromial/subdeltoid b ursitis. No muscle atrophy or edema. Impression: Mild rotator cuff tendinosis without partial or full-thickness tear. Moderate AC joint degenerative change. Suspected degenerative tear at the anterior labrum at the equator. Reviewed, dictated and finalized at [facility]. Impression: Mild rotator cuff tendinosis without partial or full-thickness tear. Moderate AC joint degenerative change. Suspected degenerative tear at the anterior labrum at the equator.
== END 2024-08-15 14:31 | disposition home or self-care (01) ==
LOC: GOSHIMG 14:31
PROVIDERS: PCP Family Medicine; Visit Provider Family Medicine
DX: M19.012 Primary osteoarthritis, left shoulder (principal)
CPT/HCPCS: 73221

== ENCOUNTER 2024-08-19 08:26 | Outpatient (CLI) | payer MEDICARE, OTHER, SELFPAY ==
--- OUTSIDE RECORDS SUMMARY | 2024-08-19 08:38 | XMS_ITS | Clinical Summary ---
Author Organization [facility] [address] [place] [address] Care Team Providers Care Informatics Coordinator Name Role Phone Dania Solorzano DO Primary Care Provider [phone] Immunizations Immunization Administration Dates Next Due Influenza, Quadrivalent, Spl it, Preservative Free, Intramuscular 02/28/2022 Social History Tobacco Use Types Packs/Day Years Used Date Smoking Tobacco: Never Assessed Personal Safety Answer Date Recorded Getting School Help Needed Not on file 07/20 Sex and Gender Information Value Date Recorded Sex Assigned at Not on file 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
--- OUTSIDE RECORDS SUMMARY | 2024-08-19 08:38 | XMS_ITS | Referral Summary ---
Author Organization [facility] [address] Address [facility] [place] [address] Care Team Providers Care Research Assistant Name Role Phone Dania Solorzano DO Primary Care Provider [phone] Immunizations Immunization Administration Dates Next Due Influenza, Quadrivalent, Spl it, Preservative Free, Intramuscular 02/28/2022 Social History Tobacco Use Types Packs/Day Years Used Date Smoking Tobacco: Never Assessed Personal Safety Answer Date Recorded Getting School Help Needed Not on file 07/20 Sex and Gender Information Value Date Recorded Sex Assigned at Not on file 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
--- OUTSIDE RECORDS SUMMARY | 2024-08-19 08:38 | XMS_ITS | Data Portability ---
Author Organization [place] [facility], Main Office Address [address] [place] [address] Care Team Providers Care Investment Associate Name Role Phone DANELLE NICHOLSON Primary Care Provider JACQUELINADELADANELLE Romero Referring Provider [phone] Assessment No assessment recorded. Plan of Treatment [...] observ ation record ed. MIGRATION. [facility] [address], [address], 07/06/2022 01:27:10 04/07/20 22 04/07/2022 rhyth m strip , EKG* No observ ation record ed. MIGRATION. [facility] (Cardiology [facility] Em[facility]) [address], [place], [address], 07/06/2022 01:27:10 05/23/19 23 XR, hand, 3 or more view No observ ation record ed. MIGRATION. [facility] [address], [address], 07/06/2022 01:27:10 Result Notes None recorded. Problems Name Problem SNOMED Code Status Onset Date Resolution Date Notes Provider Name and Address Organization Details Recorded Time Pain of left hand 6282226847429 03 Active 2021 Not Available [facility] 3 01:25:49 Pain in right hand 9661947973806 09 Active 2021 Not Available [facility] 3 01:25:49 Osteoarthr itis 762585574 Active 2021 Not Available [facility] 3 01:25:49 Osteoarthr itis of wrist 646442890 Active 2022 Adelfo Corley MD [address] [facility] [facility] [address], [place], [address] , [facility] 3 09:41:45 Problem Notes None recorded. Procedures Surgical History None recorded. Imaging Results Imaging Date Name Status LastModified by Organiz ation Details LastModified Time 05/23/2022 XR, hand, 3 or more view completed [id number] [facility] [address], [place], [address], 07/06/2022 01:27:10 04/07/2022 rhythm strip, EKG* completed [id number] [facility] (Cardiology [facility] Em[facility]) [address], [place], [address], 07/06/2022 01:27:10 02/24/2022 XR, hand completed [id number] [facility] [address], [place], [address], 07/06/2022 01:27:10 Procedure Notes None recorded. Medical [...] Updated DateTime 02/24/2022 27.1 kg/m2 182.88 cm 43229.47 g Not Available [facility] 07/06/2022 01:25:39 Date Recorded Body mass index (BMI) Body height Pain severity - 0-10 verbal numeric rating [Score] - Reported Body weight Provider Name and Address Organization Details Last Updated DateTime 03/07/2022 26.9 kg/m2 182.88 cm 9 47096.29 g Not Available [facility] 07/06/2022 01:25:39 Date Recorded Body mass index (BMI) Body height Body weight Provider Name and Address Organization Details Last Updated DateTime 05/23/2022 26.4 kg/m2 185.42 cm 83207.47 g Not Available [facility] 07/06/2022 01:25:39 Date Recorded Body height Provider Name an d Address Organization Details Last Updated DateTime 04/25/2022 182.88 cm Not Available [facility] 01:25:39 Date Recorded Body height Provider Name an d Address Organization Details Last Updated DateTime 08/22/2022 185.42 cm PARVEZ Parsons [place] [facility] [employer] [facility] 08/22/2022 09:00:59 Social History None recorded. Functional Status None recorded. Mental Status None recorded. Family History Nothing Reported. Medical History Condition Response HYPERTENSION Y Past Encounters Encounter ID Performer Location Encounter Start Date Encounter Closed Date Diagnosis/Indication Diagnosis SNOMED-CT Code Diagnosis ICD10 Code Diagnosis Note [id number] [facility] [address] [place], [place] [address] 02/24/2022 00:00:00 02/24/2022 16:09:48 [id number] [facility] [address] [place] [address] 03/07/2022 00:00:00 03/07/2022 16:37:57 [id number] [facility] [address] [place], [place] [address] 04/25/2022 00:00:00 04/25/2022 16:45:26 [id number] [facility] [address] [place], [place] [address] 05/23/2022 00:00:00 05/23/2022 17:20:38 [id number] Adelfo Corley MD [facility] [address] [place] [id number] 08/22/2022 08:58:06 08/22/2022 09:26:14 Pain of left hand 8587650104 81792 M79.642 Osteoarthr itis of wrist 008977540 M19.039 patient will continue with his stretches [...] a little cortisone injection if the capsule yeast distiller and thickened. If he would have complete [...] Sousa Member ID Guarantor Name 08/22/2022 1 [employer] - OPEN ACCESS Bryan Coleman [id number] OI Bryan Jared Notes Date Note Type [...] around the [facility] joint Adelfo Corley MD [address] [place] [address] [address], [place], [address], [facility] [employer] 08/22/2022 09:43:14
--- OUTSIDE RECORDS SUMMARY | 2024-08-19 08:38 | XMS_ITS | Clinical Summary ---
Author Organization [facility] Address [address] [place] [address] Care Team Providers Care Production Internship Name Role Phone Arlen Chang MD Primary Care Provider [phone] Medications lisinopril 10 MG tablet 03/20/2021 Active meloxicam 15 MG tablet 04/08/2021 Active pravastatin 20 MG tablet Take 20 mg by mouth nightly at bedtime. 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 Gender Identity Not on file Sexual Orientation Not on file Last Filed Vital Signs Vital Sign Reading Time Taken Comments Blood Pressure 112/70 05/20/2021 6:58 AM LOCOMOTIVE OPERATOR Pulse 77 05/20/2021 6:58 AM LOCOMOTIVE OPERATOR Temperature 36.2 C (97.1 F) 05/20/2021 6:58 AM LOCOMOTIVE OPERATOR Respiratory Rate - - Oxygen Saturation 98% 05/20/2021 6:58 AM LOCOMOTIVE OPERATOR Inhaled Oxygen Concentration - - Weight 90.7 kg (200 lb) 05/20/2021 6:58 AM LOCOMOTIVE OPERATOR Height 185.4 cm (6' 1 ) 05/20/2021 6:58 AM LOCOMOTIVE OPERATOR Body Mass Index 26.39 05/20/2021 6:58 AM LOCOMOTIVE OPERATOR Plan of Treatment Health Maintenance Due Date Last Done Comments Colorectal Cancer Screening Colonoscopy (10 Years) 1960 Hepatitis C 1977 Zoster Vaccines (1 of 2) 2009 COVID-19 Vaccine (4 - 2023-2 5 season) 2024 04/19/2021, 07/11/2020, 06/20/2020 Pneumococcal Vaccine: 50+ Years (1 of 1 - PCV) 2024 [...] 5 Years) and At-Risk Patients (6 to 49 Years) Aged Out No longer eligible b ased on patient's age to complete this topic RSV Immunizations Under 20 Months Aged Out No longer eligible b ased on patient's age to complete this topic Insurance [employer] OPEN ACCESS [facility] Care Teams Production Internship Relationship Specialty Start Date End Date Arlen Chang MD [address] [place] [address] PCP - General FAMILY PRACTICE 05/19/21
--- NOTE | 2024-09-09 14:39 | WPDHOMESLEEP ---
Sleep Study - Home Unattended Date of Study: 08/19/24 Ordering Provider: SVETLANA SandersC Interpreting Provider: Mari Cristobal, DO Home Sleep Study Type: Watch PAT Height: 1.85 m Weight: 91.626 kg Body Mass Index: 26.6 Neck Circumference (inches): 17 [place]: 13 Reason for Sleep Study Daytime hypersomnia, witnessed apneas Sleep History The patient is a 64-year-old male that had a sleep study ordered by his primary care for evaluation of sleep apnea. The patient occasionally awakens from sleep short of breath. He rarely awakens at night with heartburn, belching or cough. He frequently snores and is frequently loud enough that others complain. He frequently has trouble sleeping when he has a cold. He frequently wakes up gasping for air throughout the night. He frequently has breathing problems at night observed by himself or others. He occasionally sweats excessively at night. He rarely has heart palpitations or irregular heartbeats during the night. He rarely falls asleep during the day but never while driving. He denies sleep paralysis and cataplexy. He denies having trouble at school or work due to sleepiness. He occasionally experiences vivid dreamlike scenes upon awakening or falling asleep. He denies feeling afraid of going to sleep. He denies having nightmares. He frequently remembers his dreams. He frequently has thoughts racing through his mind. He rarely feels sad, depressed or anxious. He rarely has muscular tension. He occasionally notices parts of his body jerk. He rarely kicks during the night. He denies having crawling and aching feelings in his legs and denies having leg pain during the night. He denies grinding his teeth during sleep and denies awakening with morning jaw pain. He is occasionally bothered by pain during the day but rarely awakened by pain during the night. He rarely wakes up feeling stiff in the morning. He rarely wakes up with sore or achy muscles. He rarely wakes up with pain in the neck, spine and other joints. He goes to bed at 10:00 p.m. on both weekdays and weekends. It takes him a few minutes to fall asleep. He wakes up twice throughout the night to urinate and it takes him an hour to fall back asleep. He wakes up at 7:00 a.m. on both weekdays and weekends. He typically gets 6-8 hours of sleep per night. He will stay in bed for a few minutes after waking up the morning. He currently lives with his . He denies consuming any caffeinated beverages within 2 hours of bedtime. He denies engaging in physical exercise before bedtime. He denies reading before falling asleep. He will watch television before falling asleep. He will take naps in the afternoon or the evening and they are refreshing. He consumes 1 caffeinated beverage per day. He denies tobacco use. He consumes 3 alcoholic beverages per day. He denies recreational drug use. [facility] Past Medical History Medical History Hallux rigidus of right foot Normal colonoscopy (~10/01/09) Hepatitis C antibody test negative (~11/18/16) Essential (primary) hypertension Gastro-esophageal reflux disease without esophagitis Mixed hyperlipidemia Family History Family History Mother Diabetes mellitus Hypertension Family history of cardiovascular disease Family history of elevated blood lipids Father Hypertension Family history of elevated blood lipids Family history of cardiovascular disease Cerebrovascular accident Sibling Hypertension Social History Social History Smoking status: Never smoker Alcohol intake: current Drinks per week: 20 Alcohol use details: Xthgg-ppai-pufs-spirits Substance use: never Substance use type: does not use Lack of Transportation: No Lack of Food: Never True Current Housing: I Have Housing Concerned About Future Housing: No Difficulty Paying Gas/Electric Bills: No Difficulty Paying for Meds: No Currently Unemployed: No Education: Master's Degree or Higher Difficulty w/ Childcare or Family Care: No Living arrangements: with family Additional living arrangements comments: Occupation/Education: retired Gender identity (if verbalized by the patient): Male Sexual Orientation (if Verbalized by the Patient): Straight or Heterosexual Agree to blood products: Yes Medications Home Medications ?Medication ?Instructions ?Recorded ?Confirmed ?Type famotidine 20 mg tablet 20 mg PO DAILY PRN REFLUX 05/22/19 08/07/24 History meloxicam 15 mg tablet See Rx Instructions .Route 02/18/24 08/07/24 Rx .COMPLEX #90 tabs cyclobenzaprine 10 mg tablet 10 mg PO TID PRN muscle spasm #30 07/25/24 08/07/24 Rx tabs lisinopril 40 mg tablet 20 mg (1/2 x 40 mg) PO BID #90 tabs 07/28/24 08/07/24 Rx hydrochlorothiazide 25 mg tablet 25 mg PO DAILY #90 tabs 08/01/24 08/07/24 Rx tadalafil 10 mg tablet (Cialis) 10 mg PO DAILY PRN sexual activity 08/07/24 08/07/24 Rx #30 tabs pravastatin 40 mg tablet 40 mg PO QHS #90 tabs 08/12/24 Rx amlodipine 5 mg tablet (Norvasc) 5 mg PO DAILY #90 tabs 08/28/24 Rx Sleep Procedure The sleep study was completed using [employer] a technically adequate device with seven channels: peripheral arterial tone, actigraphy, body position, snore, respiratory movement, pulse oximetry, sleep staging, and heart rate. Prior to using the device, the patient received verbal and written instructions for its application and was provided with the help desk phone number for additional telephonic instruction with 24-hour availability of qualified personnel to answer questions. The study was scored using CMS guidelines. Sleep Architecture The total recording time is 8 hrs, 55 min. The total sleep time is 7 hrs, 2 min. Sleep latency is 17 minutes. REM latency is 67 minutes. The patient had 15 episodes of waking. Sleep architecture shows 17.3% deep sleep, 55.7% light sleep, and (as % Total Sleep Time) showed NREM (Light 55.7%; Deep 17.3%), and a 27.1% stage REM. The patient spent 11.7% of total sleep time in the supine position. Sleep efficiency was 78.88. Respiratory Analysis The overall AHI (pAHI 4%:) is 9.2. The overall AHI (pAHI 3%:) is 16.9. The central AHI is 0.4. The AHI was 5.6 in NREM and 47.1 in REM sleep. The AHI was 53.5 in Supine and 12.1 in Non-supine sleep. Percent of Law Cole respirations is 0.0. Oximetry Data The oxygen desaturation index (KAYLENE 4%:) is 9.4. The mean saturation is 94%, and the lowest saturation is 85%. Time spent with saturation < 88% is 0.9 minutes. Snoring Profile Snoring average intensity is 46 dB. The patient snored above 45 decibels for 144.6 minutes, 34.2% of sleep time. Cardiac Profile The average pulse rate is 70 beats per minutes. The lowest pulse rate is 51 bpm. The highest pulse rate reported is 105 bpm. Atrial fibrillation was not detected. Premature beats occur <0.1 per minute. Assessment and Plan Assessment and Plan (1) GRACIA (obstructive sleep apnea): Code(s): G47.33 - Obstructive sleep apnea (adult) (pediatric) Status: Acute Assessment and Plan: The patient had an overall AHI of 9.2 with desaturation down to 85%. This is consistent with mild sleep apnea. Due to the patient's hypertension, he qualifies for treatment. I recommend that the patient be prescribed AutoPAP 5-15 cm H2O, CPAP mask/filters/tubing and heated humidity. A mandibular advancement device is also an acceptable treatment option. This should be used with all episodes of sleep.? Compliance should be reviewed within 31-90 days of starting therapy for usage greater than 4 hours per night greater than 70% of the nights. The patient should be asked about symptoms such as?excessive daytime sleepiness, quality of sleep, decreased nocturia, increased?mental functioning such as memory, mood, and concentration. Data The data obtained during this sleep study is adequate for interpretation. Certification This sleep study has been reviewed by a board certified sleep medicine physician.
[2024-09-09 14:40] VITALS: BMI 26.6
== END 2024-08-20 14:32 | disposition home or self-care (01) ==
LOC: ANHCSM 08:27
PROVIDERS: PCP Family Medicine; Visit Provider Nurse Practitioner
DX: G47.8 Other sleep disorders (principal); G47.33 Obstructive sleep apnea (adult) (pediatric)
CPT/HCPCS: 95800